=== PATIENT | female | born 1970 | race Caucasian/White ===

== ENCOUNTER 2016-04-20 19:07 | Emergency (ER) | payer OTHER ==
[2016-04-20] MEDS ORDERED: SODIUM CHLORIDE 0.9% 1,000 ML IV ONE (19:11)
[2016-04-20] MEDS ORDERED: DICYCLOMINE 10 MG CAPSULE PO STA (21:35)
[2016-04-20] MEDS ORDERED: DICYCLOMINE 10 MG CAPSULE PO ONE (21:36)
[2016-04-20] MEDS ORDERED: IOPAMIDOL-300 100 ML VIAL IVP ONE (21:49)
[2016-04-20] MEDS ORDERED: PHENobarb/HYOSCY/ATROPINE/SCOP 5 ML SYRINGE PO STA (22:02)
[2016-04-20] MEDS ORDERED: PHENobarb/HYOSCY/ATROPINE/SCOP 5 ML SYRINGE PO ONE (22:04)
== END 2016-04-20 22:12 | disposition home or self-care (01) ==
DX: R10.84 Generalized abdominal pain (principal); R11.2 Nausea with vomiting, unspecified; R31.9 Hematuria, unspecified
CPT/HCPCS: 36415; 74177; 80053; 81001; 83690; 85025; 96360; 96361; 99284; A9270; Q9967

== ENCOUNTER 2016-04-24 17:10 | Outpatient (CLI) | payer OTHER | END 2016-04-24 17:11 | disposition home or self-care (01) | DX: R09.89 Other specified symptoms and signs involving the circulatory and respiratory systems (principal) ==

== ENCOUNTER 2018-08-08 16:44 | Outpatient (CLI) | payer OTHER ==
--- NOTE | 2018-08-09 08:19 | Mammography Report ---
Reason: ENCOUNTER FOR SCREENING MAMMOGRAM FOR MALIGNANT NE Procedure Date: 08/08/2018 Accession Number: [id number] / [id number] Procedure: CHETAN - Screening Mammo w/Odell CPT Code: FULL RESULT: EXAM: Screening Mammo w/Odell DATE: 08/08/2018 5:18 PM CLINICAL HISTORY: Screening encounter. No reported risk factors. TECHNIQUE: (B) - Bilateral CC, laterally exaggerated CC, MLO views were obtained. COMPARISON: 09/25/2014. PARENCHYMAL PATTERN: (A) - The breast(s) demonstrate(s) scattered fibroglandular densities. FINDINGS: In the left posterior upper lateral breast approximately 11 cm from the nipple is a nodule which was not definitely previously demonstrated which demonstrates features suggestive of a morphologically benign-appearing lymph nodes, fatty hilum, well demarcated isodense. Focused left breast ultrasound should be performed for confirmation. There are no suspicious masses, calcifications, or areas of distortion in the right breast. IMPRESSION: Incomplete examination. BI-RADS category 0. RECOMMENDATION: (ADDUS) - Targeted ultrasound recommended. Focused left breast ultrasound posterior upper outer quadrant. BI-RADS CATEGORY: (0) - Incomplete Examination - need additional evaluation. STANDARD QUALIFYING STATEMENTS: 1. This examination was not reviewed with the aid of Computer-Aided Detection (CAD). 2. A negative or benign imaging report should not preclude biopsy if clinically suspicious findings are present. 3. Dense breasts may obscure an underlying neoplasm. 4. This examination was reviewed with the aid of 3D breast imaging (tomosynthesis).
== END 2018-08-08 16:45 | disposition home or self-care (01) ==
LOC: DI 16:44
PROVIDERS: ATTEND Physician Assistant
DX: Z12.31 Encounter for screening mammogram for malignant neoplasm of breast (principal); R92.8 Other abnormal and inconclusive findings on diagnostic imaging of breast
CPT/HCPCS: 77063; 77067

== ENCOUNTER 2018-08-21 11:39 | Outpatient (CLI) | payer OTHER ==
--- NOTE | 2018-08-23 14:50 | Ultrasound Report ---
Reason: OTHER ABNORMAL AND INCONCLUSIVE FINDINGS ON DIAGNO Procedure Date: 08/21/2018 Accession Number: [id number] / [id number] Procedure: US - Breast Unilateral Limited CPT Code: FULL RESULT: EXAM: Breast Unilateral Limited DATE: 08/21/2018 12:11 PM CLINICAL HISTORY: Diagnostic ultrasound following finding of a left breast nodule. COMPARISON: 08/08/2018 through 09/25/2014. TECHNIQUE: Targeted ultrasound was performed of the left breast in the area of clinical concern at 2 o'clock and 12 cm distance from the nipple. Color Doppler was employed as appropriate. FINDINGS: A morphologically normal-appearing lymph node which measured 0.9 x 0.6 x 0.7 cm and demonstrate preserved hilar flow by limited color Doppler is identified in the location that corresponds to the mammographic finding. No suspicious findings are made. IMPRESSION: Benign findings RECOMMENDATION: Recommend routine annual Screening mammography unless otherwise clinically indicated. BIRADS CATEGORY 2: Benign findings RADIA
== END 2018-08-21 11:40 | disposition home or self-care (01) ==
LOC: DI 11:39
PROVIDERS: ATTEND Physician Assistant
DX: R92.8 Other abnormal and inconclusive findings on diagnostic imaging of breast (principal)
CPT/HCPCS: 76642

== ENCOUNTER 2019-04-10 15:54 | Outpatient (CLI) | payer OTHER ==
--- NOTE | 2019-04-11 09:22 | CT Report ---
Reason: HEADACHE Procedure Date: 04/10/2019 Accession Number: [id number] / [id number] Procedure: CT - HEAD WO CPT Code: Final Report FULL RESULT: EXAM: CT HEAD EXAM DATE: 04/10/2019 04:06 PM. CLINICAL HISTORY: HEADACHE. COMPARISON: HEAD W/O 06/18/2013 2:47 PM. TECHNIQUE: Multiaxial CT images were obtained from the foramen magnum to the vertex. Reformats: Sagittal and coronal. IV contrast: None. In accordance with CT protocol optimization, one or more of the following dose reduction techniques were utilized for this exam: automated exposure control, adjustment of mA and/or KV based on patient size, or use of iterative reconstructive technique. FINDINGS: Parenchyma: No intraparenchymal hemorrhage. No evidence of mass, midline shift, or CT findings of infarction. De Paz-white differentiation is distinct. Extraaxial Spaces: Normal for age. No subdural or epidural collections identified. Ventricles: Normal in size and position. Sinuses and Orbits: Imaged paranasal sinuses, orbits, and mastoids show no significant abnormality. Bones: No evidence of fracture or calvarial defect. Other: None. IMPRESSION: Normal head CT. RADIA
== END 2019-04-10 15:55 | disposition home or self-care (01) ==
LOC: DI 15:54
PROVIDERS: ATTEND Physician Assistant
DX: R51 Headache (principal)
CPT/HCPCS: 70450

== ENCOUNTER 2019-04-12 01:07 | Emergency (ER) | payer OTHER ==
--- NOTE | 2019-04-12 01:44 | ED Physician Documentation ---
History of Present Illness - Stated complaint Stated Complaint: ALLERGIC REACTION - Chief complaint Chief Complaint: Allergic Rx - History obtained from History obtained from: Patient - History of Present Illness Timing: Yesterday Improved by: no ameliorating factors Worsened by: no exacerbating factors - Additonal information Additional information: c/o diffuse pruritic rash since yesterday morning. She says she had recent head injury and was prescribed vicodin which she last took 2 days ago. She was having ongoing headache due to this head injury and thus took oxycodone from old rx. she took one tablet in the evening two days ago without apparent adverse reaction, and then a second dose before going to bed. She woke several hours later with diffuse pruritic rash. She says she has taken this medication before without adverse reaction. She took benadryl with some initial improvement but subsequent doses were increasingly less effective. denies dyspnea. denies swelling of lips, tongue, throat. Review of Systems Constitutional: denies: Fever, Chills, Myalgias, Sweats Respiratory: denies: Dyspnea, Cough, Wheezing Skin: reports: Rash PD PAST MEDICAL HISTORY - Past Medical History Past Medical History: Yes Cardiovascular: Other - Past Surgical History Past Surgical History: No - Present Medications Home Medications: Ambulatory Orders Medication Instructions Recorded Confirmed Dicyclomine [Bentyl] 10 mg PO QID PRN #30 capsule 04/20/16 hydrOXYzine HCL [Hydroxyzine HCl] 25 - 50 mg PO Q6HR PRN #30 tablet 04/12/19 - Allergies Allergies/Adverse Reactions: Allergies Allergy/AdvReac Type Severity Reaction Status Date / Time Penicillins Allergy Edema Verified 04/20/16 19:14 - Social History Does the pt smoke?: No Smoking Status: Never smoker Does the pt drink ETOH?: Yes Does the pt have substance abuse?: No - Immunizations Immunizations are current?: Yes - POLST Patient has POLST: No PD ED PE NORMAL - Vitals Vital signs reviewed: Yes - General General: Alert and oriented X 3, No acute distress, Well developed/nourished - HEENT HEENT: Moist mucous membranes, Other (no oropharyngeal edema) - Neck Neck: Supple, no meningeal sign - Cardiac Cardiac: RRR, No murmur - Respiratory Respiratory: No respiratory distress, Clear bilaterally PD ED PE EXPANDED - Derm Derm: Rash (diffuse macular erythematous exanthem, predominantly on trunk and extremities. sparing of palms and soles) Results - Vitals Vitals: Oxygen O2 Source Room air PD MEDICAL DECISION MAKING - ED course Complexity details: reviewed results, re-evaluated patient, considered differential, d/w patient Departure - Departure Disposition: 01 Home, Self Care Clinical Impression: Urticaria Condition: Good Instructions: ED Allergic Reaction General Other Follow-Up: Keily Amezcua PA [Primary Care Provider] - Prescriptions: hydrOXYzine HCL [Hydroxyzine HCl] 25 - 50 mg PO Q6HR PRN #30 tablet PRN Reason: Itching Discharge Date/Time: 04/12/19 03:58
[2019-04-12] MEDS ORDERED: EPINEPHrine 1 MG/ML AMP IM STA ×2 (02:00→02:31)
[2019-04-12] MEDS ORDERED: FAMOTIDINE 20 MG/2 ML VIAL IVP STA (02:52)
[2019-04-12] MEDS ORDERED: hydrOXYzine PAMOATE 25 MG CAPSULE PO STA ×2 (02:54→03:44)
[2019-04-12] MEDS ORDERED: DEXAMETHASONE 10 MG/ML VIAL IVP STA (03:45)
[2019-04-12 03:46] VITALS: BP 117/76
== END 2019-04-12 03:58 | disposition home or self-care (01) ==
LOC: ED 01:07
DX: L50.9 Urticaria, unspecified (principal)
CPT/HCPCS: 96372; 96374; 96375; 99284; 99285; A9270

== ENCOUNTER 2023-03-14 14:40 | Outpatient (CLI) | payer OTHER ==
--- NOTE | 2023-03-14 15:11 | Sleep Patient Instructions ---
Sleep Center Visit Summary - Patient Visit Information Reason for Visit: Initial consult for evaluation of sleep disordered breathing and other sleep issues. - Patient Instructions Instructions Attached: Sleep Study Home Monitor, Sleep Study Additional Instructions: You will be completing a sleep study, either an in-lab polysomnography (PSG) or home sleep study (HST). You will follow-up in the sleep care office after the sleep study is completed to hear the results and talk about therapy, if needed. You will be called by our office staff to schedule this appointment, but you may contact us with any questions. - Clinic Information Contact: [facility] [address] [place] [id number] [email or web address] T: [phone]
--- NOTE | 2023-03-14 15:16 | SLEEP CARE CONSULTATION ---
Information from patient questionnaire entered by Berenice Catalan. I have reviewed and concur with the information entered by Berenice Catalan. This document represents the service I personally performed and the decisions made by me, Kelly Us ARNP. History of Present Illness Service Date and Time: 03/14/2023 1440 Reason for Visit: New patient Chief Complaint: reports: Insomnia, Fatigue, Frequent awakenings at night Date of Onset: 7YRS Usual bedtime: 11PM Time it takes to fall asleep: 1HR Snores at night: No Observed to quit breathing while asleep: No Sleeps alone due to snoring: No Number of times waking at night: 5-6 Reasons for waking at night: reports: Bathroom, Other (UNKNOWN). denies: Choking, Gasping for air Toss, Turn, or Twitch while sleeping: Yes Recalls having dreams: Yes Usually gets out of bed at: 8AM Feels refreshed in the morning: No Morning headache: Yes (always has headache, ongoing issue) Sleepy or fatigued during the day: Yes Ever fallen asleep while driving: No Takes day naps: No Dreams during day naps: No Prior sleep studies: No Additional HPI information: I had the pleasure of seeing MICHAELLE CAIN today regarding the possibility of her having a sleep disorder. Her current complaints are fatigue, frequent night awakenings and insomnia. She says it takes a long time to fall asleep. She will wake up 5-6 times during the night and is not waking refreshed. She is waking up for unknown reasons. She says she snores a little bit, especially if very tired. She denies waking up choking or gasping for air. She does not take naps. She says she does have headaches in the mornings but says this is an ongoing problem. She has a headache all the time. 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 Patient is Legally and lives in [place]. Have you smoked in the past 12 months: No Cigarettes per day (20/pack): 10 Years of smokin Quit date: 2000 Smoking Pack Years: 2.0 Alcohol use: Yes Alcohol amount and frequency: 1-2 DAILY Caffeine use: Yes Caffeine amount and frequency: 3-4 DAILY Family History Family history of sleep disordered breathing: Yes Family Hx Sleep Apnea: Mother: Sleep apnea - Treated, Father: Snoring, Sleep apnea - Treated, Sibling: Sleep apnea - Treated Allergies and Home Medications Known drug allergies: Yes (penicillin, sulfa drugs, opiods) Drug allergies reviewed: Yes Home medication list reviewed: Yes Allergy and home medication list: Allergies Penicillins Allergy (Verified 03/13/23 10:12) Edema Home Medications Medication Instructions Recorded Confirmed Last Taken Type Dicyclomine [Bentyl] 10 mg PO QID PRN #30 capsule 04/20/16 03/14/23 Unknown Rx hydrOXYzine HCL [Hydroxyzine HCl] 25 - 50 mg PO Q6HR PRN #30 tablet 04/12/19 03/14/23 Unknown Rx FLUoxetine [PROzac] See Rx Instructions .ROUTE .COMPLEX 03/14/23 03/14/23 Unknown History Gabapentin [Neurontin] See Rx Instructions .ROUTE .COMPLEX 03/14/23 03/14/23 Unknown History Rizatriptan Benzoate [Rizatriptan] See Rx Instructions .ROUTE .COMPLEX 03/14/23 03/14/23 Unknown History Review of Systems Weight gain over past 5 years: 15-20 Cardiovascular: reports: irregular heart rate or pulse. denies: high blood pressure Respiratory: denies: shortness of breath Gastrointestinal: reports: nausea Urinary: reports: frequency Neurological: reports: headaches Psychiatric: reports: anxiety, depression Ear/Nose/Throat: reports: wisdom teeth removed Musculoskeletal: reports: joint pain, neck pain, back pain Immunologic: reports: allergies to food or environment Physical Exam Vital signs obtained and entered by: BERENICE Gorman MA Blood Pressure: 147/91 (LEFT ARM) Cuff size: regular Heart Rate: 77 O2 Saturation: 99 Height: 5 ft 0.5 in Weight: 166 lb Body Mass Index: 31.8 BMI Classification: Obese Neck circumference: 14.25 Mouth and throat: narrow oropharynx Soft palate: long Hard palate: normal Uvula: normal Uvula visualization: 25% Mallampati Class III Tongue: normal in size Tonsils: 2+ Neck: normal w/o lymphadenopathy or thyromegaly Heart: regular rate and rhythm Lungs: clear bilaterally Impression and Plan 1. Suspected Obstructive Sleep Apnea-Hypopnea Syndrome, as suggested by a history of irregular snoring, morning headache, frequent awakening during the night, unrefreshed sleep and cognitive impairment. I recommend proceeding to polysomnography to confirm the diagnosis and to assess severity. If the patient has significant sleep disordered breathing, a manual CPAP titration study will also be performed to find the optimal treatment pressure. I informed the patient of what the sleep studies involve and after some discussion, obtained agreement to proceed. The pathophysiology of obstructive sleep apnea-hypopnea syndrome was discussed with the patient and health risks of cardiovascular and cerebrovascular disease if not treated. Risks of drowsy driving discussed in detail and patient advised to avoid long distance driving and to dust puller at the first sign of drowsiness. Patient agreed to plan. * Schedule polysomnography. * Avoid long distance driving or driving when feeling sleepy. * Avoid alcohol, sedative and muscle relaxant around bedtime. * Attempt to lose weight. * Review instructions provided by trained office staff on how to prepare for the sleep study. * Return for follow-up after sleep study completed. Counseling Topics: Weight loss health impact Plan: PSG Time Spent with Patient (minutes): 26
[2023-03-14 15:24] VITALS: BP 147/91; O2SAT 99
== END 2023-03-14 14:41 | disposition home or self-care (01) ==
LOC: SC 14:40
PROVIDERS: ATTEND Nurse Practitioner Family
DX: G47.8 Other sleep disorders (principal); R06.83 Snoring; R51.9 Headache, unspecified; R41.89 Other symptoms and signs involving cognitive functions and awareness; E66.9 Obesity, unspecified; Z68.31 Body mass index [BMI] 31.0-31.9, adult; Z87.891 Personal history of nicotine dependence; G47.00 Insomnia, unspecified; R53.83 Other fatigue
CPT/HCPCS: 99202; 99212

== ENCOUNTER 2023-04-06 12:29 | Outpatient (CLI) | payer OTHER | END 2023-04-06 12:30 | disposition home or self-care (01) | LOC: SC 12:29 | PROVIDERS: ATTEND Nurse Practitioner Family | DX: R53.83 Other fatigue (principal); G47.8 Other sleep disorders; R51.9 Headache, unspecified; R06.83 Snoring; F32.A Depression, unspecified; E66.9 Obesity, unspecified; Z68.32 Body mass index [BMI] 32.0-32.9, adult | CPT/HCPCS: 95806 ==

== ENCOUNTER 2023-04-11 13:59 | Outpatient (CLI) | payer BC, OTHER ==
--- NOTE | 2023-04-11 14:20 | Sleep Patient Instructions ---
Sleep Center Visit Summary - Patient Visit Information Reason for Visit: Sleep study followup - Patient Instructions Additional Instructions: Your sleep study today was negative for significant sleep disordered breathing. You were found to have episodes of snoring. There are different ways to control snoring including weight loss, oral devices made by a dentist or surgical options through ENT specialist. You should not use oral devices that do not fit properly because they can affect your bite. You should also check insurance coverage of oral devices for snoring because they may not be cover well. You may obtain a referral to an ENT specialist through your primary provider. Follow-up as needed. - Clinic Information Contact: [facility] [address] [place] [id number] [email or web address] T: [phone]
--- NOTE | 2023-04-11 14:21 | SLEEP CARE CONSULTATION ---
Information from patient questionnaire entered by Kacie Catalan. I have reviewed and concur with the information entered by Kacie Catalan. This document represents the service I personally performed and the decisions made by , Kelly Us ARNP. History of Present Illness Service Date and Time: 04/11/2023 1359 Initial [place] Sleepiness Scale score: 7 (03/14/23) Current [place] Sleepiness Scale score: 3 (04/11/23) Additional HPI information: MICHAELLE CAIN returns for follow up and results of the recently performed home sleep study. The patient was informed of the following findings: No significant sleep disordered breathing with an average AHI of 2.4 and mookie oxygen saturation of 91%. There was no supine sleep. I explained the pathophysiology behind obstructive sleep apnea. Patient does not have sleep apnea and was advised how weight gain could increase the risk of developing sleep apnea in the future. I strongly encouraged the patient to lose weight. Patient has light snoring. Snoring can be reduced by weight loss. Weight loss is best achieved with diet consult. Patient instructed to contact PCP for referral. Snoring can also be treated with an oral appliance from a dentist. Advised to check insurance coverage. In addition, an ENT evaluation can be do to see if other treatment is indicated. Patient counseled not drink alcohol less than 4 hours before bedtime as it can increase snoring and apnea. Patient was cautioned about risks of drowsy driving until sleepiness symptoms resolve. Patient denies drowsy driving. Sleep Study - Results Type of Sleep Study: Home sleep study (COMPLETED 04/07/23) Prior sleep studies: No Polysomnography/Home Sleep Study results: Physician Impression: The quality of the study is good. The length of the study is adequate (> 240 minutes). Please also see the tabulated and graphic data. 1. No significant sleep disordered breathing, with an AHI of 2.4/hr and mookie SaO2 of 91%. During the study, the patient had 14 apneas (14 obstructive, 0 central, 0 mixed) and 6 hypopneas. The longest episode lasted 100.0 seconds. The patient did not sleep supine during this study. Allergies and Home Medications Known drug allergies: Yes (as listed) Drug allergies reviewed: Yes Home medication list reviewed: Yes (no changes) Allergy and home medication list: Allergies Penicillins Allergy (Verified 03/14/23 14:39) Edema Review of Systems Review of systems same as previous: Yes (NO CHANGE) Physical Exam Vital signs obtained and entered by: KACIE Gorman MA Blood Pressure: 149/90 (LEFT ARM) Cuff size: regular Heart Rate: 72 O2 Saturation: 98 Height: 5 ft 0.5 in Weight: 170 lb 12.8 oz Body Mass Index: 32.8 BMI Classification: Obese Impression and Plan 1. Snoring but no significant sleep disordered breathing. She had no supine sleep during the sleep study and may have sleep disordered breathing when sleeping on her back. Patient advised that often weight loss will reduce snoring as well as apnea risk. An oral appliance can also be used for snoring. This would require a dental consultation. Patient cautioned not to use other online appliances as can cause bite issues. Patient is advised to check if insurance will cover. An ENT consult can also be helpful to determine if any other treatment is an option. 2. Obesity, unspecified. Currently patients BMI is 32.8. Obesity increases the risk of apnea, CPAP pressure requirements and overall health risks especially cardiovascular and diabetes. Thus patient is advised to lose weight. * Attempt to lose weight * Avoid alcohol consumption near bedtime * Return as needed for follow up. Counseling Topics: Weight loss health impact Follow up with Sleep Care in: as needed Visit Type: In Office Time Spent with Patient (minutes): 12 Provider Statement: I spent 100% of the Face to Face Visit with the patient with greater than 50% spent counseling the patient and coordination of care.
[2023-04-11 14:30] VITALS: BP 149/90; O2SAT 98
== END 2023-04-11 14:00 | disposition home or self-care (01) ==
LOC: SC 13:59
PROVIDERS: ATTEND Nurse Practitioner Family
DX: R06.83 Snoring (principal); E66.9 Obesity, unspecified; Z68.32 Body mass index [BMI] 32.0-32.9, adult; R53.83 Other fatigue
CPT/HCPCS: 36415; 82607; 83540; 84466; 99212

== ENCOUNTER 2023-04-11 14:28 | Outpatient (CLI) | payer BC ==
[2023-04-11 18:24] LABS: % IRON SATURATION 31 % (20-50); IRON 142 ug/dL (50-212); TOTAL IRON BINDING CAPACITY 461 ug/dL (250-450); TRANSFERRIN 329 mg/dL (203-362)
== END 2023-04-11 14:29 | disposition home or self-care (01) ==
LOC: LAB.N 14:28
DX: R53.83 Other fatigue (principal)
CPT/HCPCS: 36415; 82607; 83540; 84466

== ENCOUNTER 2023-05-01 14:56 | Outpatient (CLI) | payer BC ==
--- NOTE | 2023-05-02 12:23 | Mammography Report ---
BILATERAL DIGITAL SCREENING MAMMOGRAM 3D/2D: 05/01/2023 CLINICAL: Routine screening. Comparison is made to exams dated: 08/08/2018 mammogram and 09/25/2014 mammogram - [facility]. There are scattered areas of fibroglandular density in both breasts (category b / 25%-50% glandular t issue). No significant masses, calcifications, or other findings are seen in either breast. There has been no significant interval change. IMPRESSION: NEGATIVE There is no mammographic evidence of malignancy. A 1 year screening mammogram is recommended. Based on the Tyrer Cuzick model (a risk assessment model) the patient's lifetime risk is 9.0% and her 10 year risk is 2.1%. According to the ACR, ACS, and NCCN guidelines, an annual breast MRI exam luis g with mammogram is recommended if the patients lifetime risk is 20% or greater. This exam was interpreted at Station ID: [id number]. NOTE: For mammograms, a report in lay terms will be sent to the patient. Approximately 15% of breast malignancies will not be visualized mammographically. In the management of a palpable breast mass, a negative mammogram must not discourage biopsy of a clinically suspicious lesion. Electronically Signed By: Yuniel ca/ange:05/02/2023 07:47:29 letter sent: No_Letter ACR BI-RADS Category 1: Negative 3341F PARENCHYMAL PATTERN: (A) - The breast(s) demonstrate(s) scattered fibroglandular densities. BI-RADS CATEGORY: (1) - 1 Mammogram [id number] 1 year screening LATERALITY: (B)
== END 2023-05-01 14:57 | disposition home or self-care (01) ==
LOC: DI.S 14:56
PROVIDERS: ATTEND Nurse Practitioner
DX: Z12.31 Encounter for screening mammogram for malignant neoplasm of breast (principal); R92.323 Mammographic fibroglandular density, bilateral breasts

== ENCOUNTER 2023-05-01 16:13 | Outpatient (CLI) | payer BC ==
--- NOTE | 2023-05-01 16:32 | XRAY Report ---
PROCEDURE: Ribs w/PA Chest 3+V RT INDICATIONS: ANTERIOR CHEST WALL PAIN RIGHT TECHNIQUE: 2 views of the ribs were acquired, along with a single view chest. COMPARISON: None. FINDINGS: Surgical changes and devices: None. Bones and chest wall: No fractures or dislocations. No suspicious bony lesions. Overlying soft tis sues appear unremarkable. Lungs and pleura: No pleural effusions or pneumothorax. Lungs appear clear. Mediastinum: Mediastinal contours appear normal. Heart size is normal. IMPRESSION: No displaced rib fracture or pneumothorax. Reviewed by: Rehana Bermudez MD on 05/01/2023 4:30 PM [facility] Approved by: Rehana Bermudez MD on 05/01/2023 4:30 PM [facility] Station ID: [id number]
== END 2023-05-01 23:59 | disposition home or self-care (01) ==
LOC: DI.S 16:13
PROVIDERS: ATTEND Physician Assistant Medical
DX: R07.89 Other chest pain (principal)